=== PATIENT | female | born 1995 | race Caucasian/White ===

== ENCOUNTER 2021-01-13 08:12 | Observation (INO) | payer MEDICAID ==
[2021-01-13 09:32] LABS: BASOPHIL % 0.2 % (0.0-0.4); Basophil (Absolute #) 0.02 (0-0.4); Eosinophil % 0.3 % (0.00-5.0); Eosinophil (Absolute #) 0.03 (0-0.5); Hematocrit 34.1 % (35-47); Hemoglobin 11.1 gm/dl (12.0-16.0); Lymphocyte (Absolute #) 1.12 (1.0-4.6); Lymphocytes % 12.4 % (24.0-44.0); Mean Cell Volume 97.7 fl (78-100); Mean Corpuscular Hemoglobin 31.8 pg (26-32); Mean Corpuscular Hgb Concent. 32.6 g/dl (32-36); Mean Platelet Volume 11.3 fl (7.5-11.0); Monocyte (Absolute #) 0.54 (0.0-1.3); Neutrophil % 81.1 % (36.0-66.0); Platelet Count 138 K/mm3 (150-450); Red Blood Count 3.49 M/mm3 (4.1-5.4); Red Cell Distribution Width 12.6 % (11.5-14.0)
[2021-01-13 09:42] LABS: Appearance CLOUDY (CLEAR); Bacteria RARE /HPF (NEGATIVE); Bilirubin NEGATIVE (NEGATIVE); Blood NEGATIVE Ery/ul (0-5); Epithelial Cells MANY /HPF (FEW); Glucose NEGATIVE (NEGATIVE); Ketones TRACE (NEGATIVE); Leukocyte Esterase LARGE (NEGATIVE); Mucus SLIGHT /HPF (NEGATIVE); Nitrite NEGATIVE (NEGATIVE); Protein,Urine Dip NEGATIVE (Negative); Specific Gravity 1.014 (1.005-1.025); Urobilinogen NEGATIVE mg/dL (0-1); WBC 51-100 /HPF (0-5)
[2021-01-13 09:48] LABS: Creatinine, Urine Random 97.1 mg/dl
[2021-01-13 10:26] LABS: ALBUMIN 3.8 g/dL (3.5-5.0); ALKALINE PHOSPHATASE 78 U/L (38-126); ANION GAP 12.4 MEQ/L (5-15); BLOOD UREA NITROGEN 9 mg/dL (7-17); CHLORIDE 105 mmol/L (98-107); Calcium 9.4 mg/dL (8.4-10.2); Carbon Dioxide 22 mmol/L (22-30); Creatinine 1 0.71 mg/dL (0.52-1.04); EST GLOMERULAR FILTRATION RATE > 60.0 ML/MIN; Glucose 105 mg/dL (74-106); Potassium 3.9 mmol/L (3.5-5.1); SGOT/AST 18 U/L (14-36); SGPT/ALT 13 U/L (0-35); SODIUM 135 mmol/L (137-145)
[2021-01-13 13:20] VITALS: BP 123/85; PULSE 93; O2SAT 96
== END 2021-01-13 11:15 | disposition home or self-care (01) ==
LOC: OB 08:12
PROVIDERS: ADMIT Obstetrics & Gynecology; ATTEND Obstetrics & Gynecology
DX: Z34.03 Encounter for supervision of normal first pregnancy, third trimester (principal); Z3A.33 33 weeks gestation of pregnancy
CPT/HCPCS: 36415; 59025; 80053; 81001; 82570; 84156; 84550; 85025; 87086; G0378

== ENCOUNTER 2021-01-15 10:36 | Observation (INO) | payer MEDICAID ==
[2021-01-15 11:02] VITALS: PULSE 95
[2021-01-15 11:13] LABS: Absolute Neutrophil Ct (ANC) 7.33 (1.4-6.9); BASOPHIL % 0.2 % (0.0-0.4); Basophil (Absolute #) 0.02 (0-0.4); Eosinophil % 0.3 % (0.00-5.0); Eosinophil (Absolute #) 0.03 (0-0.5); Hematocrit 33.4 % (35-47); Hemoglobin 10.8 gm/dl (12.0-16.0); Lymphocyte (Absolute #) 1.27 (1.0-4.6); Lymphocytes % 13.7 % (24.0-44.0); Mean Cell Volume 97.9 fl (78-100); Mean Corpuscular Hemoglobin 31.7 pg (26-32); Mean Corpuscular Hgb Concent. 32.3 g/dl (32-36); Mean Platelet Volume 10.6 fl (7.5-11.0); Monocytes % 6.5 % (0.0-12.0); Neutrophil % 79.3 % (36.0-66.0); Platelet Count 246 K/mm3 (150-450); Red Blood Count 3.41 M/mm3 (4.1-5.4); Red Cell Distribution Width 12.8 % (11.5-14.0); White Blood Count 9.3 K/mm3 (4.0-10.5)
[2021-01-15 11:54] LABS: Creatinine, Urine Random 28.7 mg/dl
[2021-01-15 11:59] LABS: Amphetamine,Urine NEGATIVE (NEGATIVE); Barbiturate,Urine NEGATIVE (NEGATIVE); Benzodiazepine,Urine NEGATIVE (NEGATIVE); Cocaine,Urine NEGATIVE (NEGATIVE); Methadone,Urine NEGATIVE (NEGATIVE); Opiate,Urine NEGATIVE (NEGATIVE); PCP,Urine NEGATIVE (NEGATIVE); THC,Urine NEGATIVE (NEGATIVE)
[2021-01-15 12:03] LABS: Appearance CLOUDY (CLEAR); Bacteria FEW /HPF (NEGATIVE); Bilirubin NEGATIVE (NEGATIVE); Blood NEGATIVE Ery/ul (0-5); Epithelial Cells FEW /HPF (FEW); Glucose NEGATIVE (NEGATIVE); Ketones NEGATIVE (NEGATIVE); Leukocyte Esterase LARGE (NEGATIVE); Mucus SLIGHT /HPF (NEGATIVE); Nitrite NEGATIVE (NEGATIVE); Protein,Urine Dip NEGATIVE (Negative); Specific Gravity 1.005 (1.005-1.025); Urobilinogen NEGATIVE mg/dL (0-1); WBC 26-50 /HPF (0-5)
[2021-01-15 12:06] LABS: ALBUMIN 3.9 g/dL (3.5-5.0); ALKALINE PHOSPHATASE 84 U/L (38-126); ANION GAP 12.3 MEQ/L (5-15); BLOOD UREA NITROGEN 8 mg/dL (7-17); CHLORIDE 105 mmol/L (98-107); Calcium 9.4 mg/dL (8.4-10.2); Carbon Dioxide 21 mmol/L (22-30); EST GLOMERULAR FILTRATION RATE > 60.0 ML/MIN; Glucose 75 mg/dL (74-106); SGOT/AST 19 U/L (14-36); SGPT/ALT 13 U/L (0-35); SODIUM 135 mmol/L (137-145); Total Protein 7.1 g/dL (6.3-8.2)
[2021-01-15 13:20] VITALS: BP 115/74
== END 2021-01-15 13:07 | disposition home or self-care (01) ==
LOC: OB 10:36
PROVIDERS: ADMIT Obstetrics & Gynecology; ATTEND Obstetrics & Gynecology
DX: Z34.03 Encounter for supervision of normal first pregnancy, third trimester (principal); Z3A.33 33 weeks gestation of pregnancy
CPT/HCPCS: 36415; 59025; 80053; 80307; 81001; 82570; 84156; 84550; 85025; 87086; G0378

== ENCOUNTER 2021-01-19 16:52 | Observation (INO) | payer MEDICAID ==
[2021-01-19 18:22] VITALS: BP 113/78
== END 2021-01-19 18:02 | disposition home or self-care (01) ==
LOC: UNDOADMOB 16:52 → MED SURG 16:52 → UNDODISOB 18:02
PROVIDERS: ADMIT Obstetrics & Gynecology; ATTEND Obstetrics & Gynecology
DX: O36.5930 Maternal care for other known or suspected poor fetal growth, third trimester, not applicable or unspecified (principal); Z3A.34 34 weeks gestation of pregnancy
CPT/HCPCS: 59025; G0378

== ENCOUNTER 2021-01-22 14:22 | Observation (INO) | payer MEDICAID ==
[2021-01-22 14:55] VITALS: BP 125/72; PULSE 92; O2SAT 98
== END 2021-01-22 15:05 | disposition home or self-care (01) ==
LOC: MED SURG 14:22 → UNDOADMOB 14:22 → UNDODISOB 15:05
PROVIDERS: ADMIT Obstetrics & Gynecology; ATTEND Obstetrics & Gynecology
DX: O16.3 Unspecified maternal hypertension, third trimester (principal); Z3A.34 34 weeks gestation of pregnancy
CPT/HCPCS: 59025; G0378

== ENCOUNTER 2021-01-26 17:53 | Observation (INO) | payer MEDICAID ==
[2021-01-26 18:41] VITALS: BP 126/71; PULSE 84
== END 2021-01-26 18:58 | disposition home or self-care (01) ==
LOC: OB 17:53
PROVIDERS: ADMIT Obstetrics & Gynecology; ATTEND Obstetrics & Gynecology
DX: O16.3 Unspecified maternal hypertension, third trimester (principal); Z3A.35 35 weeks gestation of pregnancy
CPT/HCPCS: 59025; G0378

== ENCOUNTER 2021-01-29 16:37 | Observation (INO) | payer MEDICAID ==
[2021-01-29 17:11] VITALS: BP 117/73; PULSE 86
== END 2021-01-29 17:30 | disposition home or self-care (01) ==
LOC: OB 16:37
PROVIDERS: ADMIT Obstetrics & Gynecology; ATTEND Obstetrics & Gynecology
DX: O36.5930 Maternal care for other known or suspected poor fetal growth, third trimester, not applicable or unspecified (principal); O16.3 Unspecified maternal hypertension, third trimester; Z3A.35 35 weeks gestation of pregnancy
CPT/HCPCS: 59025; G0378

== ENCOUNTER 2021-02-03 17:46 | Observation (INO) | payer MEDICAID ==
[2021-02-03 18:10] VITALS: BP 115/71; PULSE 85; O2SAT 98
== END 2021-02-03 18:30 | disposition home or self-care (01) ==
LOC: MED SURG 17:46
PROVIDERS: ADMIT Obstetrics & Gynecology; ATTEND Obstetrics & Gynecology
DX: O36.5930 Maternal care for other known or suspected poor fetal growth, third trimester, not applicable or unspecified (principal); O16.3 Unspecified maternal hypertension, third trimester; Z3A.35 35 weeks gestation of pregnancy
CPT/HCPCS: 59025; G0378

== ENCOUNTER 2021-02-07 12:54 | Observation (INO) | payer MEDICAID ==
[2021-02-07 13:13] VITALS: BP 129/79; PULSE 112
== END 2021-02-07 13:45 | disposition home or self-care (01) ==
LOC: OB 12:54
PROVIDERS: ADMIT Obstetrics & Gynecology; ATTEND Obstetrics & Gynecology
DX: O36.5930 Maternal care for other known or suspected poor fetal growth, third trimester, not applicable or unspecified (principal); O16.3 Unspecified maternal hypertension, third trimester; Z3A.36 36 weeks gestation of pregnancy
CPT/HCPCS: 59025; G0378

== ENCOUNTER 2021-02-10 17:47 | Observation (INO) | payer MEDICAID ==
[2021-02-10 18:16] VITALS: BP 121/84
== END 2021-02-10 19:00 | disposition home or self-care (01) ==
LOC: OB 17:47
PROVIDERS: ADMIT Obstetrics & Gynecology; ATTEND Obstetrics & Gynecology
DX: O16.3 Unspecified maternal hypertension, third trimester (principal); Z3A.37 37 weeks gestation of pregnancy
CPT/HCPCS: 59025; G0378

== ENCOUNTER 2021-02-14 13:01 | Observation (INO) | payer MEDICAID ==
[2021-02-14 13:25] VITALS: BP 137/74; PULSE 95
== END 2021-02-14 13:40 | disposition home or self-care (01) ==
LOC: OB 13:01
PROVIDERS: ADMIT Obstetrics & Gynecology; ATTEND Obstetrics & Gynecology
DX: Z34.03 Encounter for supervision of normal first pregnancy, third trimester (principal); Z3A.37 37 weeks gestation of pregnancy
CPT/HCPCS: 59025; G0378

== ENCOUNTER 2021-02-17 17:43 | Observation (INO) | payer MEDICAID ==
[2021-02-17 18:38] VITALS: BP 116/66; PULSE 98; O2SAT 98
== END 2021-02-17 18:30 | disposition home or self-care (01) ==
LOC: OB 17:43
PROVIDERS: ADMIT Obstetrics & Gynecology; ATTEND Obstetrics & Gynecology
DX: Z34.03 Encounter for supervision of normal first pregnancy, third trimester (principal); Z3A.38 38 weeks gestation of pregnancy
CPT/HCPCS: 59025; G0378

== ENCOUNTER 2021-02-20 16:50 | Observation (INO) | payer MEDICAID ==
[2021-02-20 17:09] VITALS: PULSE 106
[2021-02-20 17:18] VITALS: BP 138/83
== END 2021-02-20 17:30 | disposition home or self-care (01) ==
LOC: OB 16:50
PROVIDERS: ADMIT Obstetrics & Gynecology; ATTEND Obstetrics & Gynecology
DX: O16.3 Unspecified maternal hypertension, third trimester (principal); Z3A.38 38 weeks gestation of pregnancy
CPT/HCPCS: 59025; G0378

== ENCOUNTER 2021-02-24 17:37 | Observation (INO) | payer MEDICAID ==
[2021-02-24 18:39] VITALS: BP 132/83; PULSE 90
== END 2021-02-24 18:20 | disposition home or self-care (01) ==
LOC: OB 17:37
PROVIDERS: ADMIT Obstetrics & Gynecology; ATTEND Obstetrics & Gynecology
DX: O16.3 Unspecified maternal hypertension, third trimester (principal); Z3A.39 39 weeks gestation of pregnancy
CPT/HCPCS: 59025; G0378

== ENCOUNTER 2021-02-27 03:09 | Inpatient (IN) | payer MEDICAID ==
[2021-02-27] MEDS ORDERED: Zofran 4 MG/2 ML VIAL IV PRN (08:00)
[2021-02-27] MEDS ORDERED: TYLENOL EXTRA STRENGTH 500 MG PO PRN (08:00)
[2021-02-27 08:48] LABS: Absolute Neutrophil Ct (ANC) 7.31 (1.4-6.9); BASOPHIL % 0.1 % (0.0-0.4); Basophil (Absolute #) 0.01 (0-0.4); Eosinophil % 0.3 % (0.00-5.0); Eosinophil (Absolute #) 0.03 (0-0.5); Hematocrit 35.8 % (35-47); Hemoglobin 11.6 gm/dl (12.0-16.0); Lymphocyte (Absolute #) 1.14 (1.0-4.6); Lymphocytes % 12.5 % (24.0-44.0); Mean Cell Volume 97.3 fl (78-100); Mean Corpuscular Hemoglobin 31.5 pg (26-32); Mean Corpuscular Hgb Concent. 32.4 g/dl (32-36); Monocyte (Absolute #) 0.62 (0.0-1.3); Monocytes % 6.8 % (0.0-12.0); Neutrophil % 80.3 % (36.0-66.0); Platelet Count 263 K/mm3 (150-450); Red Blood Count 3.68 M/mm3 (4.1-5.4); Red Cell Distribution Width 13.1 % (11.5-14.0); White Blood Count 9.1 K/mm3 (4.0-10.5)
[2021-02-27] MEDS ORDERED: Lactated Ringers 1,000 ML IV SCH (09:00)
[2021-02-27 09:14] LABS: Amphetamine,Urine NEGATIVE (NEGATIVE); Barbiturate,Urine NEGATIVE (NEGATIVE); Benzodiazepine,Urine NEGATIVE (NEGATIVE); Cocaine,Urine NEGATIVE (NEGATIVE); Methadone,Urine NEGATIVE (NEGATIVE); Opiate,Urine NEGATIVE (NEGATIVE); PCP,Urine NEGATIVE (NEGATIVE); THC,Urine NEGATIVE (NEGATIVE)
[2021-02-27 09:33] LABS: ABO TYPING O
[2021-02-27 09:34] LABS: Antibody Screen NEGATIVE (NEGATIVE); RH TYPING POSITIVE
[2021-02-27] MEDS: Trandate 100 MG PO SCH ×2 (10:15→19:55)
[2021-02-27] MEDS ORDERED: PITOCIN 30 UNITS/ LR 500 ML 30 UNITS/500 ML IV.SOLN. IV SCH ×2 (12:00→19:00)
[2021-02-27] MEDS ORDERED: XYLOCAINE 1% HCL 20 ML MDV IJ PRN (12:00)
[2021-02-27] MEDS ORDERED: LANSINOH 40 GM TOP PRN (17:01)
[2021-02-27] MEDS ORDERED: OB EPIDURAL NAROPIN/SUFENTANIL IN NACL EPIDURAL PRN (17:01)
[2021-02-27] MEDS ORDERED: NORCO 5/325 MG PO PRN (17:01)
[2021-02-27] MEDS ORDERED: Lactated Ringers 1,000 ML IV ONE (17:01)
[2021-02-27] MEDS ORDERED: TUCKS TP PRN (17:01)
[2021-02-27] MEDS ORDERED: Dermoplast Spray TP PRN (17:01)
[2021-02-28] MEDS: MOTRIN 400 MG PO PRN ×3 (07:22→22:13)
[2021-02-28] MEDS: Trandate 100 MG PO SCH ×2 (10:51→22:13)
[2021-02-28] MEDS: FERREX 150 PO SCH (10:51)
[2021-02-28] MEDS: Colace 100 MG PO SCH ×2 (10:51→22:13)
--- NOTE | 2021-02-28 10:56 | PCM.NOTE ---
Date and Time: 02/28/21 1054 Subjective Assessment: PPD 0 SP PT RESTING IN BED AND DOING WELL VSS AFEBRILE ABD;SOFT UTERUS; FIRM LOCHIA; MILD A/P SP PPD 0 CPM OBJECTIVE DATA Vital Signs: Vital Signs - 24 hr Temp Pulse Resp BP BP 02/28/21 03:50 99.6 F 90 18 119/64 02/28/21 03:15 93 H 18 112/54 02/28/21 01:50 94 H 18 108/52 02/28/21 01:15 93 H 18 108/66 02/28/21 01:00 99 F 90 18 113/53 02/28/21 00:45 90 18 145/81 02/28/21 00:29 85 18 128/58 02/28/21 00:12 87 18 127/63 02/28/21 00:00 100 H 18 125/58 02/27/21 23:45 100 H 18 122/58 02/27/21 23:28 94 H 18 122/60 02/27/21 23:15 90 18 129/62 02/27/21 23:00 98.9 F 93 H 18 134/68 02/27/21 22:45 102 H 18 111/51 02/27/21 22:30 115 H 18 104/50 02/27/21 22:15 99 F 107 H 18 121/76 02/27/21 21:56 83 18 134/70 02/27/21 21:42 93 H 20 117/66 02/27/21 21:15 98.1 F 102 H 18 101/65 02/27/21 20:37 91 H 18 127/78 02/27/21 19:45 98.4 F 103 H 18 127/70 02/27/21 18:36 88 18 132/77 02/27/21 17:51 98.6 F 86 18 115/72 02/27/21 16:42 98.6 F 110 H 18 02/27/21 16:38 98.6 F 110 H 18 123/81 02/27/21 14:00 110 H 18 123/81 02/27/21 13:00 121 H 18 133/76 02/27/21 12:00 117 H 18 113/70 130/79 02/27/21 11:00 113 H 18 116/75 Pain Assessment - Last Documented Pain Intensity [Lower Anterior 2 ] Pain Intensity 4 Pain Scale Used 0-10 Pain Scale Intake and Output: Intake & Output 02/25/21 02/26/21 02/27/21 02/28/21 11:59 11:59 11:59 11:59 Intake Total 2780 Output Total 300 Balance 2480 Weight 102.512 kg Lab Results: Lab Results-Last 24 Hours 02/27/21 Range/Units 14:38 POC Amnio Swab Test Positive Multi-Disciplinary Progress Notes: Multi-Disciplinary Progress Notes 02/28/21 01:20 Respiratory Note by Liliana Lazar THIS RT STAND BY FOR DELIVERY. NO RESPIRATORY INTERVENTION NEEDED AT THIS TIME. Initialized on 02/28/21 01:20 - END OF NOTE Assessment/Plan (1) Vaginal delivery Current Visit: Yes Status: Acute Code(s): O80 - ENCOUNTER FOR FULL-TERM UNCOMPLICATED DELIVERY
[2021-02-28] MEDS ORDERED: Adacel Vial IM ONE (12:00)
[2021-02-28 15:42] LABS: Absolute Neutrophil Ct (ANC) 10.54 (1.4-6.9); BASOPHIL % 0.2 % (0.0-0.4); Basophil (Absolute #) 0.02 (0-0.4); Eosinophil % 0.2 % (0.00-5.0); Eosinophil (Absolute #) 0.02 (0-0.5); Hematocrit 29.7 % (35-47); Hemoglobin 9.5 gm/dl (12.0-16.0); Lymphocyte (Absolute #) 1.19 (1.0-4.6); Lymphocytes % 9.2 % (24.0-44.0); Mean Corpuscular Hemoglobin 31.7 pg (26-32); Mean Platelet Volume 10.4 fl (7.5-11.0); Monocyte (Absolute #) 1.14 (0.0-1.3); Monocytes % 8.8 % (0.0-12.0); Neutrophil % 81.6 % (36.0-66.0); Platelet Count 213 K/mm3 (150-450); Red Cell Distribution Width 13.1 % (11.5-14.0); White Blood Count 12.9 K/mm3 (4.0-10.5)
[2021-02-28 16:56] VITALS: O2SAT 97
[2021-02-28 22:00] LABS: HBsAg Screen Negative (Negative); HIV Screen 4th Generation wRfx Non Reactive (Non Reactive)
--- NOTE | 2021-03-01 09:12 | PCM.NOTE ---
Date and Time: 03/01/21909 Subjective Assessment: ppd 1 pt resting in bed and doing well able to ambulate and tolerate diet vss afebrile abd; soft uterus; firm lochia; mild a/p sp ppd 1 dc home today fu office 3 wks OBJECTIVE DATA Vital Signs: Vital Signs - 24 hr Temp Pulse Resp BP Pulse Ox 03/01/21 06:00 97.2 F 77 20 126/83 03/01/21 02:00 20 02/28/21 20:00 97.1 F 91 H 20 133/89 97 02/28/21 14:00 97.9 F 97 H 18 97/59 97 Pain Assessment - Last Documented Pain Intensity [Lower Anterior 3 ] Pain Intensity 2 Pain Scale Used 0-10 Pain Scale Intake and Output: Intake & Output 02/26/21 02/27/21 02/28/21 03/01/21 11:59 11:59 11:59 11:59 Intake Total 2780 500 Output Total 300 Balance 2480 500 Weight 102.512 kg Lab Results: Lab Results-Last 24 Hours 02/27/21 02/28/21 Range/Units 08:32 15:43 WBC 12.9 H (4.0-10.5) K/mm3 RBC 3.00 L (4.1-5.4) M/mm3 Hgb 9.5 L (12.0-16.0) gm/dl Hct 29.7 L (35-47) % MCV 99.0 (78-100) fl MCH 31.7 (26-32) pg MCHC 32.0 (32-36) g/dl RDW 13.1 (11.5-14.0) % Plt Count 213 (150-450) K/mm3 MPV 10.4 (7.5-11.0) fl Gran % 81.6 H (36.0-66.0) % Eos # (Auto) 0.02 (0-0.5) Absolute Lymphs (auto) 1.19 (1.0-4.6) Absolute Monos (auto) 1.14 (0.0-1.3) Lymphocytes % 9.2 L (24.0-44.0) % Monocytes % 8.8 (0.0-12.0) % Eosinophils % 0.2 (0.00-5.0) % Basophils % 0.2 (0.0-0.4) % Absolute Granulocytes 10.54 H (1.4-6.9) Basophils # 0.02 (0-0.4) Hep Bs Antigen Negative (Negative) HIV 1&2 Ab/P24 Ag 4thGn Non Reactive (Non Reactive) Assessment/Plan (1) Vaginal delivery Current Visit: Yes Status: Acute Code(s): O80 - ENCOUNTER FOR FULL-TERM UNCOMPLICATED DELIVERY
--- NOTE | 2021-03-01 09:16 | PCM.DS ---
Discharge Summary Date of Admission: 02/27/21 13:30 Admitting Physician: CINDI ZUÑIGA DO Consults: Consults on Case 02/28/21 16:08 Navigation ONCE Primary Care Provider: MIQUEL KIMBALL Allergies Allergies Penicillins Allergy (Verified 02/07/21 13:21) [facility] Summary - Hospital Course Hospital Course: pt admitted on february 27 for cytotec induction with subsequent pitocin and delivered live baby boy via without complication on february 28. during period did very well was able to ambulate and tolerate. pt had stable hgb and at this time stable for discharge. all questions answered to her satisfaction. - Vitals & Intake/Output Vital Signs: Vital Signs Temperature 97.2 F 03/01/21 06:00 Pulse Rate 77 03/01/21 06:00 Respiratory Rate 20 03/01/21 06:00 Blood Pressure 126/83 03/01/21 06:00 O2 Sat by Pulse Oximetry 97 02/28/21 20:00 Intake & Output: Intake & Output 02/26/21 02/27/21 02/28/21 03/01/21 11:59 11:59 11:59 11:59 Intake Total 2780 500 Output Total 300 Balance 2480 500 Weight 102.512 kg - Lab Result Diagrams: 02/28/21 15:43 Lab Results-Last 24 Hrs: Lab Results-Last 24 Hours 02/27/21 02/28/21 Range/Units 08:32 15:43 WBC 12.9 H (4.0-10.5) K/mm3 RBC 3.00 L (4.1-5.4) M/mm3 Hgb 9.5 L (12.0-16.0) gm/dl Hct 29.7 L (35-47) % MCV 99.0 (78-100) fl MCH 31.7 (26-32) pg MCHC 32.0 (32-36) g/dl RDW 13.1 (11.5-14.0) % Plt Count 213 (150-450) K/mm3 MPV 10.4 (7.5-11.0) fl Gran % 81.6 H (36.0-66.0) % Eos # (Auto) 0.02 (0-0.5) Absolute Lymphs (auto) 1.19 (1.0-4.6) Absolute Monos (auto) 1.14 (0.0-1.3) Lymphocytes % 9.2 L (24.0-44.0) % Monocytes % 8.8 (0.0-12.0) % Eosinophils % 0.2 (0.00-5.0) % Basophils % 0.2 (0.0-0.4) % Absolute Granulocytes 10.54 H (1.4-6.9) Basophils # 0.02 (0-0.4) Hep Bs Antigen Negative (Negative) HIV 1&2 Ab/P24 Ag 4thGn Non Reactive (Non Reactive) - Procedures and Test Procedures and Tests throughout Hospitalization: Therapy Orders & Screens 02/28/21 00:40 Standby ROUTINE Comment: Final Diagnosis/Problem List - Final Discharge Diagnosis/Problem (1) Vaginal delivery Current Visit: Yes Status: Acute Code(s): O80 - ENCOUNTER FOR FULL-TERM UNCOMPLICATED DELIVERY - Discharge Disposition: Home, Self-Care Condition: Stable Prescriptions: No Action Vits W-Ca,Fe,FA(<1Mg) [] 1 each PO DAILY Labetalol HCl 100 mg [Trandate 100 MG] 100 mg PO BID Follow up with: MIQUEL KIMBALL [Primary Care Provider] - CINDI ZUÑIGA DO [ACTIVE STAFF] - 3 weeks (nothing per vagina for 5 wks )
[2021-03-01] MEDS: FERREX 150 PO SCH (10:22)
[2021-03-01] MEDS: MOTRIN 400 MG PO PRN (10:22)
[2021-03-01] MEDS: Colace 100 MG PO SCH (10:22)
[2021-03-01] MEDS: Trandate 100 MG PO SCH (10:22)
[2021-03-01 17:42] VITALS: BP 125/81; PULSE 89
== END 2021-03-01 18:00 | disposition home or self-care (01) | DRG 807 ==
LOC: OB 07:53 → OBSVTOIN 13:30 → MED SURG 02-28 22:11
PROVIDERS: ADMIT Obstetrics & Gynecology; ATTEND Obstetrics & Gynecology
PROC: 10E0XZZ Delivery of Products of Conception, External Approach (ICD-10-PCS; principal; 2021-02-28)
PROC: 0KQM0ZZ Repair Perineum Muscle, Open Approach (ICD-10-PCS; 2021-02-28)
DX: O70.1 Second degree perineal laceration during delivery (principal); Z37.0 Single live birth; Z3A.39 39 weeks gestation of pregnancy
CPT/HCPCS: 36415; 59409; 80307; 84112; 85025; 86850; 86900; 86901; 87340; 87389; 90471; 90715; 94799; G0378; J2590; J2795; A9270-GY